=== PATIENT | male | born 1970 | race Caucasian/White ===

== ENCOUNTER → 2018-12-09 11:31 | Outpatient (CLI) | payer OTHER, SELFPAY ==
--- NOTE | 2018-12-09 | DI.RAD.S_ITS ---
PROCEDURE: XR RIBS RT MIN 3V W CXR 1V INDICATIONS: RIGHT RIB/CHEST PAIN TECHNIQUE: 2 views of the right and left ribs were acquired, along with a single view chest. COMPARISON: None. FINDINGS: Surgical changes and devices: None. Bones and chest wall: No fractures or dislocations. No suspicious bony lesions. Overlying soft tissues appear unremarkable. Lungs and pleura: No pleural effusions or pneumothorax. Lungs appear clear. Mediastinum: Mediastinal contours appear normal. Heart size is normal. IMPRESSION: No displaced rib fractures seen bilaterally. Dictated by: Kaz Winslow [facility] Interpreted: Joselito Harkins MD on 12/10/2018 at 15:10 Approved by: Joselito Harkins M.D. on 12/13/2018 at 8:37
== END ==
PROVIDERS: Visit Provider Family Medicine
DX: R07.81 Pleurodynia (principal)
CPT/HCPCS: 71101

== ENCOUNTER 2020-03-27 12:02 | Emergency (ER) | payer OTHER, SELFPAY ==
[2020-03-27] VITALS (13 sets, daily range): BP systolic 123–135; BP diastolic 66–80; PULSE 50–64; RESP 15–16; TEMP 36.2–37.1; O2SAT 91–100; BMI 32.2
--- NOTE | 2020-03-27 12:48 | DI.CT.S_ITS ---
PROCEDURE: CT HEAD/BRAIN WO CON INDICATIONS: coital headache TECHNIQUE: Noncontrast 4.5 mm thick angled axial sections acquired from the foramen magnum to the vertex, with coronal and sagittal reformats. For radiation dose reduction, the following was used: automated exposure control, adjustment of mA and/or kV according to patient size. COMPARISON: None. FINDINGS: Image quality: Excellent. CSF spaces: Basal cisterns are patent. No extra-axial fluid collections. Ventricles are normal in size and shape. Brain: No midline shift. No intracranial masses or hemorrhage. Quezada-white matter interface is normal. Skull and face: Calvarium and visualized facial bones are intact, without suspicious lesions. Sinuses: Visualized sinuses and mastoids are clear. IMPRESSION: Negative head CT. No evidence acute stroke, hemorrhage, or mass. Dictated by: Adriano Meza M.D. on 03/27/2020 at 13:06 Approved by: Adriano Meza M.D. on 03/27/2020 at 13:08
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
[2020-03-27] MEDS: SODIUM CHLORIDE 0.9% 1,000 ML 1000 ML IV (13:01)
[2020-03-27] MEDS: diphenhydrAMINE 50 MG/ML VIAL 25 MG IV (13:02)
[2020-03-27] MEDS: METOCLOPRAMIDE 10 MG/2 ML INJ IV (13:02)
[2020-03-27 13:20] LABS: Add Manual Diff / Slide Review NO; Basophils Absolute Auto 0 /uL (0-100); Basophils Percent Auto 0.6 % (0-2); Eosinophils Absolute Auto 0 /uL (0-450); Eosinophils Percent Auto 0.4 % (2-4); Hematocrit 43.5 % (41-53); Hemoglobin 14.9 g/dL (13.5-17.5); Lymphocytes Absolute Auto 1700 /uL (1100-4500); Lymphocytes Percent Auto 32.8 % (25-40); Mean Corpuscular HGB Conc 34.4 % (30-36); Mean Corpuscular Hemoglobin 30.3 PG (26-34); Mean Corpuscular Volume 88.1 fL (80-100); Monocytes Absolute Auto 300 /uL (0-900); Monocytes Percent Auto 6.2 % (3-14); Neutrophils Absolute Auto 3200 /uL (1500-7000); Platelet Count 168 X10^3/uL (150-400); Red Blood Cell Count 4.94 X10^6/uL (4.5-5.9); Red Cell Distribution Width 12.7 % (11.6-14.8); White Blood Cell Count 5.3 X10^3/uL (4.5-11.0)
[2020-03-27] MEDS: KETOROLAC 60 MG/2 ML VIAL 30 MG IV (13:37)
[2020-03-27 13:40] LABS: Alanine Aminotransferase 42 IU/L (<50); Albumin Globulin Ratio 1.7 (1.0-2.8); Alkaline Phosphatase 81 U/L (38-126); Aspartate Aminotransferase 36 IU/L (17-59); BUN Creatinine Ratio 27.5 (6-22); Bilirubin Total 0.5 mg/dL (0.2-1.3); Blood Urea Nitrogen 19 mg/dL (9-20); Calcium 9.6 mg/dL (8.4-10.2); Carbon Dioxide 30 mmol/L (22-32); Chloride 102 mmol/L (98-107); Estimated Glomerular Filt Rate > 60.0 mL/min (>60); Glucose 110 mg/dL (70-100); HEMOLYSIS < 15 (0-50); Potassium 4.3 mmol/L (3.4-5.1); Sodium 139 mmol/L (137-145)
== END 2020-03-27 16:00 | disposition home or self-care (01) ==
PROVIDERS: Emergency Provider Nurse Practitioner Family
DX: R51.9 Headache, unspecified (principal); H54.40 Blindness, one eye, unspecified eye; Z87.820 Personal history of traumatic brain injury
CPT/HCPCS: 36415; 70450; 80053; 85025; 96361; 96374; 96375; 99283; 99284; J1200; J1885; J2765

== ENCOUNTER → 2020-12-25 13:06 | Outpatient (ROUT) | payer OTHER, SELFPAY ==
[2020-12-25 14:00] LABS: COVID19 -Nasal RAPID Negative (Negative)
== END ==
PROVIDERS: Visit Provider Family Medicine
DX: Z20.822 Contact with and (suspected) exposure to COVID-19 (principal)
CPT/HCPCS: 87635

== ENCOUNTER 2021-05-30 10:30 | Emergency (ER) | payer OTHER, SELFPAY ==
[2021-05-30] VITALS (8 sets, daily range): BP systolic 124–153; BP diastolic 77–86; PULSE 52–63; RESP 14–22; TEMP 36.5–36.6; O2SAT 97–100; BMI 32.5
[2021-05-30 10:58] LABS: Add Manual Diff / Slide Review NO; Basophils Absolute Auto 0 /uL (0-100); Basophils Percent Auto 0.7 % (0-2); Eosinophils Absolute Auto 0 /uL (0-450); Eosinophils Percent Auto 0.5 % (2-4); Hematocrit 43.7 % (41-53); Lymphocytes Absolute Auto 1800 /uL (1100-4500); Lymphocytes Percent Auto 27.7 % (25-40); Mean Corpuscular HGB Conc 34.4 % (30-36); Mean Corpuscular Hemoglobin 29.9 PG (26-34); Mean Corpuscular Volume 86.9 fL (80-100); Monocytes Absolute Auto 400 /uL (0-900); Monocytes Percent Auto 6.2 % (3-14); Neutrophils Absolute Auto 4300 /uL (1500-7000); Neutrophils Percent Auto 64.9 % (50-75); Platelet Count 169 X10^3/uL (150-400); Red Blood Cell Count 5.03 X10^6/uL (4.5-5.9); Red Cell Distribution Width 13.1 % (11.6-14.8); White Blood Cell Count 6.6 X10^3/uL (4.5-11.0)
[2021-05-30 11:11] LABS: Alanine Aminotransferase 52 IU/L (<50); Albumin 4.9 g/dL (3.5-5.0); Albumin Globulin Ratio 1.5 (1.0-2.8); Alkaline Phosphatase 88 U/L (38-126); Aspartate Aminotransferase 40 IU/L (17-59); BUN Creatinine Ratio 27.3 (6-22); Bilirubin Total 0.6 mg/dL (0.2-1.3); Blood Urea Nitrogen 21 mg/dL (9-20); Calcium 9.9 mg/dL (8.4-10.2); Carbon Dioxide 25 mmol/L (22-32); Chloride 104 mmol/L (98-107); Estimated Glomerular Filt Rate > 60.0 mL/min (>60); Globulin 3.2 g/dL (1.7-4.1); Glucose 111 mg/dL (70-100); HEMOLYSIS 20 (0-50); Lipase 165 U/L (23-300); Potassium 4.4 mmol/L (3.4-5.1); Sodium 139 mmol/L (137-145); Total Protein 8.1 g/dL (6.3-8.2)
--- NOTE | 2021-05-30 12:12 | DI.US.S_ITS ---
PROCEDURE: US ABDOMEN LIMITED INDICATIONS: RIGHT UPPER QUADRANT PAIN TECHNIQUE: Real-time focused scanning was performed of the abdomen, with image documentation. COMPARISON: None. FINDINGS: The liver demonstrates mildly enlarged size. The liver demonstrates generalized moderately increased echogenicity. This decreases ultrasound sensitivity for detection of hepatic masses. The main portal vein demonstrates normal size and demonstrates normal appearing, hepatopetal flow. No findings of gallstones or sludge are seen. The gallbladder wall is not thickened, measuring 3 mm or less. No specific pericholecystic fluid is seen. The sonographic Nice sign is negative. The biliary tree is not well seen. Pancreas is overall not well seen. IMPRESSION: Normal appearing gallbladder. Biliary tree not well seen. Enlarged, fatty liver. Dictated by: Colby Chandra M.D. on 05/30/2021 at 12:40 Approved by: Colby Chandra M.D. on 05/30/2021 at 12:41
--- NOTE | 2021-05-30 12:22 | ED_ITS ---
HPI - Abdominal Pain <Arnol Jc PA-C - Last Filed: 05/30/21 19:16> General Chief Complaint: Abdominal Pain Stated Complaint: rt side pain; nausea dizzyness Time Seen by Provider: 05/30/21 12:01 Source: patient Mode of arrival: Ambulatory History of Present Illness HPI narrative: Patient is a 50-year-old male presenting to the emergency department today for evaluation of intermittent right upper quadrant abdominal pain. Patient states that he 1st noticed his pain yesterday morning, noting that it waxes and wanes 1st starting as and aching pain and occasionally transiting into a sharp and stabbing pain. He states he experienced this right upper quadrant abdominal pain again this morning and went to see the nurse practitioner at his office clinic. He states that they performed an EKG and stated that the nurse practitioner urged him to come to the emergency department due to the results of the EKG. Patient reports associated intermittent dizziness and nausea, however he denies fever, chills, chest pain, cough, shortness of breath, vomiting, diarrhea, constipation, dysuria, hematuria, or any other concerning symptoms. No further concerns reports at this time. Related Data Allergies Allergy/AdvReac Type Severity Reaction Status Date / Time No Known Drug Allergies Allergy Verified 05/30/21 10:44 Review of Systems <Arnol Jc PA-C - Last Filed: 05/30/21 19:16> Constitutional Constitutional: Denies chills, Denies fatigue, Denies fever(s), Denies frequent falls, Denies lethargy and Denies weakness Eyes Eyes: Denies loss of vision ENT Ears, Nose, Mouth, and Throat: Reports dizziness and Denies neck pain Cardiovascular Cardiovascular: Denies chest pain, Denies irregular heart rhythm, Denies lightheadedness, Denies palpitations, Denies dyspnea, Denies dyspnea on exertion and Denies orthopnea Respiratory Respiratory: Denies cough, Denies dyspnea, Denies dyspnea on exertion and Denies wheezing Gastrointestinal Gastrointestinal: Reports abdominal pain, Denies change in bowel habits, Denies diarrhea, Reports nausea and Denies vomiting Genitourinary Genitourinary: Denies hematuria, Denies flank pain, Denies urinary incontinence and Denies urinary urgency Musculoskeletal Musculoskeletal: Denies back pain, Denies muscle weakness, Denies neck pain, Denies numbness and Denies tingling Integumentary/Breasts Skin/Breast: Denies pruritus, Denies erythema, Denies rash and Denies wounds Neurologic Neurologic: Denies behavioral changes, Denies confusion, Reports dizziness, Denies frequent falls, Denies loss of vision, Denies numbness, Denies tingling and Denies weakness Psychiatric Psychiatric: Denies behavioral changes and Denies confusion Endocrine Endocrine: Denies fatigue and Denies palpitations Allergic/Immunologic Allergic/Immunologic: Denies wheezing Patient History <Arnol Jc PA-C - Last Filed: 05/30/21 19:16> Medical History History of traumatic brain injury Social History Smoking Status: Unknown if ever smoked Smoking Status: Unknown if ever smoked tobacco type: smokeless tobacco alcohol intake frequency: holidays/special occasions only Substance Use Type: marijuana Exam <Arnol Jc PA-C - Last Filed: 05/30/21 19:16> Narrative Exam Narrative: GENERAL: 50 year old patient appears stated age. Well-developed patient, in no acute distress. HEAD: Atraumatic. Normocephalic. EYES: Pupils equal round and reactive. Extraocular motions intact. No scleral icterus. No injection or drainage. ENT: Nose without bleeding, purulent drainage. Throat without erythema, tonsillar hypertrophy or exudate. Airway patent. NECK: Trachea midline. Non tender CARDIOVASCULAR: Regular rate and rhythm without murmurs, gallops, or rubs. RESPIRATORY: Clear to auscultation. Breath sounds equal bilaterally. No wheezes, rales, or rhonchi. GASTROINTESTINAL: Abdomen soft, nondistended. Mild tenderness to palpation noted in the right upper quadrant. Negative Nice sign. EXTREMITIES: No edema or joint tenderness. BACK: Nontender without deformity or crepitance. No flank tenderness. NEURO: AOx3. SKIN: No rash or erythema of visible areas Initial Vital Signs Initial Vital Signs: Vital Signs Temperature 97.7 F 05/30/21 10:44 Pulse Rate 61 05/30/21 10:44 Respiratory Rate 14 05/30/21 10:44 Blood Pressure 132/77 05/30/21 10:44 Pulse Oximetry 98 05/30/21 10:44 <Dayday Delaney DO - Last Filed: 06/04/21 18:59> Initial Vital Signs Initial Vital Signs: Vital Signs Temperature 97.7 F 05/30/21 10:44 Pulse Rate 61 05/30/21 10:44 Respiratory Rate 14 05/30/21 10:44 Blood Pressure 132/77 05/30/21 10:44 Pulse Oximetry 98 05/30/21 10:44 Course <Arnol Jc PA-C - Last Filed: 05/30/21 19:16> Course Course Narrative: CBC, CMP, lipase, troponin with repeat, urinalysis, EKG, and abdominal ultrasound performed. Patient administered 324 mg chewable aspirin and 4 mg of p.o. Zofran. Patient states he is feeling better in the emergency department. Patient states he experienced a brief episode of left-sided chest pain, noting it was sharp in nature and fleeting. He states he has not experienced similar episodes since then. Repeat troponin was obtained to rule out ACS/myocardial infarction. Orders Ordered: Discontinued Medications Aspirin (Aspirin 81 Mg Chew Tab) 324 mg PO NOW ONE Stop: 05/30/21 13:22 Last Admin: 05/30/21 13:25 Dose: 324 mg Documented by: ATARUBENOR Ondansetron HCl (Ondansetron 4 Mg Odt) 4 mg SL NOW ONE Stop: 05/30/21 12:27 Last Admin: 05/30/21 12:47 Dose: 4 mg Documented by: LENO Vital Signs Vital signs: Vital Signs - 8 hr 05/30/21 12:49 05/30/21 13:00 05/30/21 13:30 Temperature Pulse Rate 58 L 58 L 63 Respiratory Rate 17 Blood Pressure 124/85 Pulse Oximetry 97 97 100 05/30/21 13:36 05/30/21 14:00 05/30/21 14:30 Temperature Pulse Rate 53 L 52 L 52 L Respiratory Rate 15 15 22 Blood Pressure 153/86 H 134/83 Pulse Oximetry 99 98 98 05/30/21 14:44 Temperature 97.9 F Pulse Rate Respiratory Rate Blood Pressure Pulse Oximetry <Dayday Delaney DO - Last Filed: 06/04/21 18:59> Orders Ordered: Discontinued Medications Aspirin (Aspirin 81 Mg Chew Tab) 324 mg PO NOW ONE Stop: 05/30/21 13:22 Last Admin: 05/30/21 13:25 Dose: 324 mg Documented by: ATAYLOR Ondansetron HCl (Ondansetron 4 Mg Odt) 4 mg SL NOW ONE Stop: 05/30/21 12:27 Last Admin: 05/30/21 12:47 Dose: 4 mg Documented by: LENO Vital Signs Vital signs: Vital Signs - 8 hr 05/30/21 12:49 05/30/21 13:00 05/30/21 13:30 Temperature Pulse Rate 58 L 58 L 63 Respiratory Rate 17 Blood Pressure 124/85 Pulse Oximetry 97 97 100 05/30/21 13:36 05/30/21 14:00 05/30/21 14:30 Temperature Pulse Rate 53 L 52 L 52 L Respiratory Rate 15 15 22 Blood Pressure 153/86 H 134/83 Pulse Oximetry 99 98 98 05/30/21 14:44 Temperature 97.9 F Pulse Rate Respiratory Rate Blood Pressure Pulse Oximetry MDM - Abdominal Pain <Arnol Jc PA-C - Last Filed: 05/30/21 19:16> Lab Data Result diagrams: 05/30/21 10:50 05/30/21 10:50 Labs: Lab Results 05/30/21 05/30/21 05/30/21 Range/Units 10:50 10:50 11:12 WBC 6.6 (4.5-11.0) X10^3/uL RBC 5.03 (4.5-5.9) X10^6/uL Hgb 15.0 (13.5-17.5) g/dL Hct 43.7 (41-53) % MCV 86.9 (80-100) fL MCH 29.9 (26-34) PG MCHC 34.4 (30-36) % RDW 13.1 (11.6-14.8) % Plt Count 169 (150-400) X10^3/uL Neut % (Auto) 64.9 (50-75) % Lymph % (Auto) 27.7 (25-40) % Frontier % (Auto) 6.2 (3-14) % Eos % (Auto) 0.5 L (2-4) % Baso % (Auto) 0.7 (0-2) % Neut # (Auto) 4300 (5151-2026) /uL Lymph # (Auto) 1800 (1879-0798) /uL Frontier # (Auto) 400 (0-900) /uL Eos # (Auto) 0 (0-450) /uL Baso # (Auto) 0 (0-100) /uL Sodium 139 (137-145) mmol/L Potassium 4.4 (3.4-5.1) mmol/L Chloride 104 (98-107) mmol/L Carbon Dioxide 25 (22-32) mmol/L BUN 21 H (9-20) mg/dL Creatinine 0.77 (0.66-1.25) mg/dL Estimated GFR > 60.0 (>60) mL/min BUN/Creatinine Ratio 27.3 H (6-22) Glucose 111 H (70-100) mg/dL Calcium 9.9 (8.4-10.2) mg/dL Total Bilirubin 0.6 (0.2-1.3) mg/dL AST 40 (17-59) IU/L ALT 52 H (<50) IU/L Alkaline Phosphatase 88 (38-126) U/L Total Creatine Kinase 212 H (55-170) U/L CK-MB (CK-2) 2.96 H (<2.37) ng/mL CK-MB (CK-2) Rel Index 1.4 L (1.5-5.0) % Troponin I < 0.012 (0.01-0.034) ng/mL Total Protein 8.1 (6.3-8.2) g/dL Albumin 4.9 (3.5-5.0) g/dL Globulin 3.2 (1.7-4.1) g/dL Albumin/Globulin Ratio 1.5 (1.0-2.8) Lipase 165 (23-300) U/L 05/30/21 Range/Units 13:29 WBC (4.5-11.0) X10^3/uL RBC (4.5-5.9) X10^6/uL Hgb (13.5-17.5) g/dL Hct (41-53) % MCV (80-100) fL MCH (26-34) PG MCHC (30-36) % RDW (11.6-14.8) % Plt Count (150-400) X10^3/uL Neut % (Auto) (50-75) % Lymph % (Auto) (25-40) % Frontier % (Auto) (3-14) % Eos % (Auto) (2-4) % Baso % (Auto) (0-2) % Neut # (Auto) (1571-0876) /uL Lymph # (Auto) (5237-3606) /uL Frontier # (Auto) (0-900) /uL Eos # (Auto) (0-450) /uL Baso # (Auto) (0-100) /uL Sodium (137-145) mmol/L Potassium (3.4-5.1) mmol/L Chloride (98-107) mmol/L Carbon Dioxide (22-32) mmol/L BUN (9-20) mg/dL Creatinine (0.66-1.25) mg/dL Estimated GFR (>60) mL/min BUN/Creatinine Ratio (6-22) Glucose (70-100) mg/dL Calcium (8.4-10.2) mg/dL Total Bilirubin (0.2-1.3) mg/dL AST (17-59) IU/L ALT (<50) IU/L Alkaline Phosphatase (38-126) U/L Total Creatine Kinase (55-170) U/L CK-MB (CK-2) (<2.37) ng/mL CK-MB (CK-2) Rel Index (1.5-5.0) % Troponin I < 0.012 (0.01-0.034) ng/mL Total Protein (6.3-8.2) g/dL Albumin (3.5-5.0) g/dL Globulin (1.7-4.1) g/dL Albumin/Globulin Ratio (1.0-2.8) Lipase (23-300) U/L Point of care testing: Urine Dip Bedside Urine Glucose Negative Bedside Urine Bilirubin - Negative Bedside Urine Ketone - Negative Urine Specific Magnolia 1.015 Bedside Urine Occult Blood - Negative Bedside Urine pH 6.0 Bedside Urine Protein - Negative Bedside Urine Urobilinogen +/- 1mg Bedside Urine Nitrite - Negative Bedside Urine Leukocytes - Negative Esterase Imaging Data US - abdomen: Radiologist's Impression: PROCEDURE: US ABDOMEN LIMITED ? INDICATIONS:? RIGHT UPPER QUADRANT PAIN ? TECHNIQUE:? Real-time focused scanning was performed of the abdomen, with image documentation.? ? COMPARISON:? None. ? FINDINGS:? The liver demonstrates mildly enlarged size. The liver demonstrates generalized moderately increased echogenicity. This decreases ultrasound sensitivity for detection of hepatic masses.? The main portal vein demonstrates normal size and demonstrates normal appearing, hepatopetal flow.? ? No findings of gallstones or sludge are seen.? The gallbladder wall is not thickened, measuring 3 mm or less.? No specific pericholecystic fluid is seen.? The sonographic Nice sign is negative. ? The biliary tree is not well seen. ? Pancreas is overall not well seen. ? ? IMPRESSION:? Normal appearing gallbladder. ? Biliary tree not well seen. ? Enlarged, fatty liver. ? ? Dictated by: Colby Chandra M.D. on 05/30/2021 at 12:40 ? ? Approved by: Colby Chandra M.D. on 05/30/2021 at 12:41 ? MDM Narrative Medical decision making narrative: To consider cholelithiasis versus choledocholithiasis versus acute cholangitis versus cholecystitis versus gallstone pancreatitis versus hepatitis versus diverticulitis versus ACS versus acute coronary syndrome versus myocardial infarction versus chest wall tenderness versus musculoskeletal chest pain. Overall, physical examination, history, lab studies, and imaging obtained in the emergency department today returned reassuring. Discussed labs studies and imaging with patient informed him that no acute abnormality was identified today or require emergent intervention. Discussed possibility obtaining further imaging with the patient, however at this time he states he feels comfortable with current results. I urged the patient to follow-up with his primary care provider within the next 2-3 days for further evaluation. Patient expresses understanding agrees to plan. At this time patient states that he would like to be discharged home and is stable for discharge. Strict return precautions were discussed with the patient prior to discharge. <Dayday Delaney, DO - Last Filed: 06/04/21 18:59> Lab Data Labs: Lab Results 05/30/21 05/30/21 05/30/21 Range/Units 10:50 10:50 11:12 WBC 6.6 (4.5-11.0) X10^3/uL RBC 5.03 (4.5-5.9) X10^6/uL Hgb 15.0 (13.5-17.5) g/dL Hct 43.7 (41-53) % MCV 86.9 (80-100) fL MCH 29.9 (26-34) PG MCHC 34.4 (30-36) % RDW 13.1 (11.6-14.8) % Plt Count 169 (150-400) X10^3/uL Neut % (Auto) 64.9 (50-75) % Lymph % (Auto) 27.7 (25-40) % Frontier % (Auto) 6.2 (3-14) % Eos % (Auto) 0.5 L (2-4) % Baso % (Auto) 0.7 (0-2) % Neut # (Auto) 4300 (6826-1058) /uL Lymph # (Auto) 1800 (5465-7410) /uL Frontier # (Auto) 400 (0-900) /uL Eos # (Auto) 0 (0-450) /uL Baso # (Auto) 0 (0-100) /uL Sodium 139 (137-145) mmol/L Potassium 4.4 (3.4-5.1) mmol/L Chloride 104 (98-107) mmol/L Carbon Dioxide 25 (22-32) mmol/L BUN 21 H (9-20) mg/dL Creatinine 0.77 (0.66-1.25) mg/dL Estimated GFR > 60.0 (>60) mL/min BUN/Creatinine Ratio 27.3 H (6-22) Glucose 111 H (70-100) mg/dL Calcium 9.9 (8.4-10.2) mg/dL Total Bilirubin 0.6 (0.2-1.3) mg/dL AST 40 (17-59) IU/L ALT 52 H (<50) IU/L Alkaline Phosphatase 88 (38-126) U/L Total Creatine Kinase 212 H (55-170) U/L CK-MB (CK-2) 2.96 H (<2.37) ng/mL CK-MB (CK-2) Rel Index 1.4 L (1.5-5.0) % Troponin I < 0.012 (0.01-0.034) ng/mL Total Protein 8.1 (6.3-8.2) g/dL Albumin 4.9 (3.5-5.0) g/dL Globulin 3.2 (1.7-4.1) g/dL Albumin/Globulin Ratio 1.5 (1.0-2.8) Lipase 165 (23-300) U/L 05/30/21 Range/Units 13:29 WBC (4.5-11.0) X10^3/uL RBC (4.5-5.9) X10^6/uL Hgb (13.5-17.5) g/dL Hct (41-53) % MCV (80-100) fL MCH (26-34) PG MCHC (30-36) % RDW (11.6-14.8) % Plt Count (150-400) X10^3/uL Neut % (Auto) (50-75) % Lymph % (Auto) (25-40) % Frontier % (Auto) (3-14) % Eos % (Auto) (2-4) % Baso % (Auto) (0-2) % Neut # (Auto) (9804-8172) /uL Lymph # (Auto) (5560-9737) /uL Frontier # (Auto) (0-900) /uL Eos # (Auto) (0-450) /uL Baso # (Auto) (0-100) /uL Sodium (137-145) mmol/L Potassium (3.4-5.1) mmol/L Chloride (98-107) mmol/L Carbon Dioxide (22-32) mmol/L BUN (9-20) mg/dL Creatinine (0.66-1.25) mg/dL Estimated GFR (>60) mL/min BUN/Creatinine Ratio (6-22) Glucose (70-100) mg/dL Calcium (8.4-10.2) mg/dL Total Bilirubin (0.2-1.3) mg/dL AST (17-59) IU/L ALT (<50) IU/L Alkaline Phosphatase (38-126) U/L Total Creatine Kinase (55-170) U/L CK-MB (CK-2) (<2.37) ng/mL CK-MB (CK-2) Rel Index (1.5-5.0) % Troponin I < 0.012 (0.01-0.034) ng/mL Total Protein (6.3-8.2) g/dL Albumin (3.5-5.0) g/dL Globulin (1.7-4.1) g/dL Albumin/Globulin Ratio (1.0-2.8) Lipase (23-300) U/L Point of care testing: Urine Dip Bedside Urine Glucose Negative Bedside Urine Bilirubin - Negative Bedside Urine Ketone - Negative Urine Specific Magnolia 1.015 Bedside Urine Occult Blood - Negative Bedside Urine pH 6.0 Bedside Urine Protein - Negative Bedside Urine Urobilinogen +/- 1mg Bedside Urine Nitrite - Negative Bedside Urine Leukocytes - Negative Esterase Discharge Plan Departure Patient Disposition: Home Clinical Impression: Abdominal pain Instructions: DI for Abdominal Pain-Adult Activity Restrictions/Additional Instructions: *You have been diagnosed with abdominal pain *What to do: *Please continue to take your regular medications as directed. [ ] New medication prescriptions sent to your pharmacy: [ ] [ ] New medication written as a paper prescription [X] No new medications given Your physical examination, lab studies, and imaging obtained in the emergency department today returned overall very reassuring. No acute abnormality was identified today that would require emergent intervention. I recommend following up with the primary care provider within the next 2-3 days for further evaluation of your symptoms. Please do not hesitate to return to the emergency department if you experience worsening pain, intractable vomiting, fever, or any other concerning symptoms. *Please follow up with your primary care provider in 2-3 days, call for an appointment. Let them know you were seen in the Emergency Department and that we ask that you be seen in follow up. We will electronically transmit a record of today's note if your PCP is in our system *If you do not have a primary care provider please contact the [facility] Resource line at [phone]. They will ask some questions about your medical history and help get you set up with a doctor in the community. *Return to Emergency Department if you should have any new, worsening or concerning symptoms, such as fever greater than 101 F, shaking chills, worsening pain, persistent vomiting or other bothersome symptoms. <Dayday Delaney DO - Last Filed: 06/04/21 18:59> Cosign ED Attending Cosmatthewature Attestation: I was immediately available in the department for consultation. This documentation has been reviewed and I agree with assessment and plan. Supervised by Dayday Delaney DO
[2021-05-30] MEDS: ONDANSETRON 4 MG ODT SL (12:47)
[2021-05-30 12:59] LABS: Creatine Kinase 212 U/L (55-170)
[2021-05-30 13:12] LABS: Troponin I < 0.012 ng/mL (0.01-0.034)
[2021-05-30 13:17] LABS: CKMB % Relative Index 1.4 % (1.5-5.0); Creatine Kinase MB 2.96 ng/mL (<2.37)
[2021-05-30] MEDS: ASPIRIN 81 MG CHEW TAB 324 MG PO (13:25)
--- NOTE | 2021-05-30 13:28 | PC.NURSE ---
Per hotel maintenance technician, pt reported chest pain during procedure. Pt reports feeling sharp pain in left chest when he was laid flat, denies radiation, reports 0/10 pain now. [facility] aware.
[2021-05-30 14:11] LABS: Troponin I < 0.012 ng/mL (0.01-0.034)
== END 2021-05-30 14:45 | disposition home or self-care (01) ==
PROVIDERS: Emergency Medicine; Emergency Provider Physician Assistant
DX: R10.11 Right upper quadrant pain (principal)
CPT/HCPCS: 36415; 76705; 80053; 81003; 82550; 82553; 83690; 84484; 85025; 93005; 93010; 99284

== ENCOUNTER → 2022-01-11 11:08 | Outpatient (CLI) | payer OTHER, SELFPAY ==
--- NOTE | 2022-01-11 11:10 | DI.RAD.S_ITS ---
PROCEDURE: XR KNEE LT 3V INDICATIONS: bilateral knee, hip, back, ankle pain TECHNIQUE: 3 views of the knee were acquired. COMPARISON: [facility], CR, XR HIP W PEL IF DONE FEDE 3TO4V, 01/11/2022, 11:24. [facility], CR, XR LUMBAR SPINE 2-3V, 01/11/2022, 11:24. [facility], CR, XR KNEE RT 3V, 01/11/2022, 11:24. [facility], CR, XR ANKLE RT MIN 3V, 01/11/2022, 11:24. [facility], CR, XR ANKLE LT MIN 3V, 01/11/2022, 11:24. FINDINGS: Bones: No fractures or dislocations. No suspicious bony lesions. There is mild medial femorotibial joint space narrowing seen, with associated remodeling changes including subchondral sclerosis and osteophyte formation along the jointline. Soft tissues: No joint effusion. No suspicious soft tissue calcifications. 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 Dictated by: Colby Chandra M.D. on 01/11/2022 at 18:19 Approved by: Colby Chandra M.D. on 01/11/2022 at 18:19
--- NOTE | 2022-01-11 11:10 | DI.RAD.S_ITS ---
PROCEDURE: XR LUMBAR SPINE 2-3V INDICATIONS: bilateral knee, hip, back, ankle pain TECHNIQUE: 3 views of the lumbar spine were acquired. COMPARISON: [facility], CR, XR HIP W PEL IF DONE FEDE 3TO4V, 01/11/2022, 11:24. [facility], CR, XR KNEE LT 3V, 01/11/2022, 11:24. [facility], CR, XR KNEE RT 3V, 01/11/2022, 11:24. [facility], CR, XR ANKLE RT MIN 3V, 01/11/2022, 11:24. [facility], CR, XR ANKLE LT MIN 3V, 01/11/2022, 11:24. FINDINGS: Bones: 5 [id number] vertebrae are present. No vertebral body compression fractures. No suspicious bony lesions. There is minimal grade 1 L5-S1 anterolisthesis. Bilateral L5 pars defects are faintly seen. Mild disc space narrowing is seen L1-L2. Lower lumbar spine facet arthropathy is seen. Soft tissues: Overlying bowel gas pattern is normal. No suspicious soft tissue calcifications. IMPRESSION: Age-appropriate lumbar degenerative changes are seen. Bilateral L5 pars defects are seen, with minimal grade 1 anterolisthesis. If it would be helpful for clinical management decision making, please consider a dedicated, scheduled lumbar spine MRI for further evaluation (assuming that there is no contraindication). Dictated by: Colby Chandra M.D. on 01/11/2022 at 18:32 Approved by: Colby Chandra M.D. on 01/11/2022 at 18:33
--- NOTE | 2022-01-11 11:10 | DI.RAD.S_ITS ---
PROCEDURE: XR HIP W PEL IF DONE FEDE MIN 4V INDICATIONS: bilateral knee, hip, back, ankle pain TECHNIQUE: AP pelvis with lateral view(s) of both hip(s). COMPARISON: [facility], CR, XR LUMBAR SPINE 2-3V, 01/11/2022, 11:24. [facility], CR, XR KNEE LT 3V, 01/11/2022, 11:24. [facility], CR, XR KNEE RT 3V, 01/11/2022, 11:24. [facility], CR, XR ANKLE RT MIN 3V, 01/11/2022, 11:24. [facility], CR, XR ANKLE LT MIN 3V, 01/11/2022, 11:24. FINDINGS: Bones: No fractures or dislocations. Pelvic ring appears intact. No suspicious bony lesions. There is mild superior joint space narrowing seen of both hips, with associated remodeling changes with subchondral sclerosis and osteophyte formation. Soft tissues: The visualized bowel gas pattern is normal. No suspicious soft tissue calcifications. IMPRESSION: Mild bilateral hip degenerative change. Dictated by: Colby Chandra M.D. on 01/11/2022 at 18:19 Approved by: Colby Chandra M.D. on 01/11/2022 at 18:29
--- NOTE | 2022-01-11 11:10 | DI.RAD.S_ITS ---
PROCEDURE: XR ANKLE RT MIN 3V INDICATIONS: bilateral knee, hip, back, ankle pain TECHNIQUE: 3 views of the ankle were acquired. COMPARISON: [facility], CR, XR HIP W PEL IF DONE FEDE 3TO4V, 01/11/2022, 11:24. [facility], CR, XR LUMBAR SPINE 2-3V, 01/11/2022, 11:24. [facility], CR, XR KNEE LT 3V, 01/11/2022, 11:24. [facility], CR, XR KNEE RT 3V, 01/11/2022, 11:24. [facility], CR, XR ANKLE LT MIN 3V, 01/11/2022, 11:24. FINDINGS: Bones: No fractures or dislocations. Ankle mortise is normally aligned. No suspicious bony lesions. The talar dome demonstrates no howard abnormality. Age-appropriate bony degenerative changes are seen. Plantar and Achilles calcaneal spurs are seen. Soft tissues: No tibiotalar joint effusion. Achilles tendon appears normal. IMPRESSION: Age-appropriate bony degenerative changes are seen. Dictated by: Colby Chandra M.D. on 01/11/2022 at 18:30 Approved by: Colby Chandra M.D. on 01/11/2022 at 18:30
--- NOTE | 2022-01-11 11:10 | DI.RAD.S_ITS ---
PROCEDURE: XR KNEE RT 3V INDICATIONS: bilateral knee, hip, back, ankle pain TECHNIQUE: 3 views of the knee were acquired. COMPARISON: [facility], CR, XR HIP W PEL IF DONE FEDE 3TO4V, 01/11/2022, 11:24. [facility], CR, XR LUMBAR SPINE 2-3V, 01/11/2022, 11:24. [facility], CR, XR KNEE LT 3V, 01/11/2022, 11:24. [facility], CR, XR ANKLE RT MIN 3V, 01/11/2022, 11:24. [facility], CR, XR ANKLE LT MIN 3V, 01/11/2022, 11:24. FINDINGS: Bones: No fractures or dislocations. No suspicious bony lesions. The femorotibial joint spaces are relatively well preserved. On the sunrise view, there is mild lateral patellofemoral joint space narrowing seen. Osteophyte formation can be seen along the margins of the patella. On the lateral view, there is an enthesophyte seen along the superior aspect of the patella. Soft tissues: No joint effusion. No suspicious soft tissue calcifications. IMPRESSION: Focal lateral patellofemoral joint degenerative change. Dictated by: Colby Chandra M.D. on 01/11/2022 at 18:31 Approved by: Colby Chandra M.D. on 01/11/2022 at 18:32
--- NOTE | 2022-01-11 11:10 | DI.RAD.S_ITS ---
PROCEDURE: XR ANKLE LT MIN 3V INDICATIONS: bilateral knee, hip, back, ankle pain TECHNIQUE: 3 views of the ankle were acquired. COMPARISON: [facility], CR, XR HIP W PEL IF DONE FEDE 3TO4V, 01/11/2022, 11:24. [facility], CR, XR LUMBAR SPINE 2-3V, 01/11/2022, 11:24. [facility], CR, XR KNEE LT 3V, 01/11/2022, 11:24. [facility], CR, XR KNEE RT 3V, 01/11/2022, 11:24. [facility], CR, XR ANKLE RT MIN 3V, 01/11/2022, 11:24. FINDINGS: Bones: No fractures or dislocations. Ankle mortise is normally aligned. No suspicious bony lesions. The talar dome demonstrates no howard abnormality. Age-appropriate bony degenerative changes are seen. Plantar and Achilles calcaneal spurs are seen. Soft tissues: No tibiotalar joint effusion. Achilles tendon appears normal. IMPRESSION: Foot plain films within normal limits for age, with generalized degenerative change. Dictated by: Colby Chandra M.D. on 01/11/2022 at 18:30 Approved by: Colby Chandra M.D. on 01/11/2022 at 18:31
[2022-01-11 12:21] LABS: Add Manual Diff / Slide Review NO; Basophils Absolute Auto 0 /uL (0-100); Basophils Percent Auto 0.4 % (0-2); Eosinophils Absolute Auto 100 /uL (0-450); Hematocrit 44.3 % (41-53); Hemoglobin 15.7 g/dL (13.5-17.5); Lymphocytes Absolute Auto 1900 /uL (1100-4500); Lymphocytes Percent Auto 35.7 % (25-40); Mean Corpuscular HGB Conc 35.3 % (30-36); Mean Corpuscular Hemoglobin 30.6 PG (26-34); Mean Corpuscular Volume 86.6 fL (80-100); Monocytes Absolute Auto 400 /uL (0-900); Monocytes Percent Auto 8.1 % (3-14); Neutrophils Absolute Auto 2900 /uL (1500-7000); Neutrophils Percent Auto 54.8 % (50-75); Platelet Count 161 X10^3/uL (150-400); Red Blood Cell Count 5.11 X10^6/uL (4.5-5.9); Red Cell Distribution Width 12.7 % (11.6-14.8); White Blood Cell Count 5.2 X10^3/uL (4.5-11.0)
[2022-01-11 12:28] LABS: Hemoglobin A1C% w Est Avg Glu 5.5 % (4.0-6.0)
[2022-01-11 12:39] LABS: Alanine Aminotransferase 48 IU/L (<50); Albumin 4.8 g/dL (3.5-5.0); Albumin Globulin Ratio 1.7 (1.0-2.8); Alkaline Phosphatase 81 U/L (38-126); Aspartate Aminotransferase 38 IU/L (17-59); BUN Creatinine Ratio 30.9 (6-22); Blood Urea Nitrogen 25 mg/dL (9-20); C-Reactive Protein Quant 0.5 mg/dL (<1.0); Calcium 9.2 mg/dL (8.4-10.2); Carbon Dioxide 27 mmol/L (22-32); Chloride 103 mmol/L (98-107); Cholesterol 212 mg/dL (140-199); Estimated Glomerular Filt Rate > 60 mL/min (>60); Globulin 2.8 g/dL (1.7-4.1); Glucose 108 mg/dL (70-100); HDL Cholesterol 31 mg/dL (40-60); HEMOLYSIS < 15 (0-50); LDL Cholesterol Calculated 163 mg/dL (<100); Potassium 4.3 mmol/L (3.4-5.1); Sodium 141 mmol/L (137-145); Total Protein 7.6 g/dL (6.3-8.2); Triglycerides 91 mg/dL (35-150)
[2022-01-11 12:40] LABS: Rheumatoid Factor < 8.6 IU/mL (<12.0)
[2022-01-11 12:43] LABS: Erythrocyte Sedimentation Rate 5 MM/HR (0-15)
[2022-01-11 13:06] LABS: TSH w/ Reflex to FT4 0.81 uIU/mL (0.47-4.68)
[2022-01-13 12:27] LABS: Appearance Urine UA CLEAR; Bilirubin Urine UA NEGATIVE (NEGATIVE); Color Urine UA YELLOW; Glucose Urine UA NEGATIVE (Negative); Ketones Urine UA NEGATIVE (NEGATIVE); Leukocyte Esterase Urine UA TRACE (NEGATIVE); Nitrite Urine UA NEGATIVE (Negative); Occult Blood Urine UA NEGATIVE (Negative); Protein Urine UA NEGATIVE (Negative); Specific Gravity Urine UA 1.015 (1.000-1.035); Urobilinogen Urine UA 0.2 E.U./dL (0.2); pH Urine UA 5.5 (4.5-8.0)
[2022-01-13 12:48] LABS: Bacteria Urine Occasional (0-1); Culture Indicated Urine Specimen Cultured; Mucus Urine 1+ (Negative); RBC Urine None Seen (0-5/HPF); Squamous Epithelial Cell Urine 0-1 /HPF (0-5/HPF); WBC Urine 1-5/HPF (0-5/HPF)
== END ==
PROVIDERS: PCP Family Medicine; Referring Provider Family Medicine; Visit Provider Family Medicine
DX: M47.816 Spondylosis without myelopathy or radiculopathy, lumbar region (principal); M19.90 Unspecified osteoarthritis, unspecified site; R73.9 Hyperglycemia, unspecified; E66.9 Obesity, unspecified; M25.561 Pain in right knee; M25.562 Pain in left knee; M25.551 Pain in right hip; M25.552 Pain in left hip; M25.571 Pain in right ankle and joints of right foot; M25.572 Pain in left ankle and joints of left foot; M54.9 Dorsalgia, unspecified; Z82.61 Family history of arthritis
CPT/HCPCS: 36415; 72100; 73522; 73562; 73610; 80053; 80061; 81001; 83036; 84443; 85025; 85651; 86038; 86140; 86430; 87086

== ENCOUNTER → 2022-12-31 11:53 | Outpatient (CLI) | payer OTHER, SELFPAY ==
[2022-12-31 12:45] LABS: Add Manual Diff / Slide Review NO; Basophils Absolute Auto 0 /uL (0-100); Basophils Percent Auto 0.6 % (0-2); Eosinophils Absolute Auto 0 /uL (0-450); Eosinophils Percent Auto 0.6 % (2-4); Hematocrit 42.7 % (41-53); Hemoglobin 15.1 g/dL (13.5-17.5); Lymphocytes Absolute Auto 1900 /uL (1100-4500); Lymphocytes Percent Auto 32.1 % (25-40); Mean Corpuscular HGB Conc 35.3 % (30-36); Mean Corpuscular Hemoglobin 30.3 PG (26-34); Mean Corpuscular Volume 85.9 fL (80-100); Monocytes Absolute Auto 500 /uL (0-900); Monocytes Percent Auto 7.8 % (3-14); Neutrophils Absolute Auto 3500 /uL (1500-7000); Neutrophils Percent Auto 58.9 % (50-75); Platelet Count 164 X10^3/uL (150-400); Red Blood Cell Count 4.97 X10^6/uL (4.5-5.9); Red Cell Distribution Width 12.7 % (11.6-14.8)
[2022-12-31 12:57] LABS: Hemoglobin A1C% w Est Avg Glu 5.2 % (4.0-6.0)
[2022-12-31 13:07] LABS: Alanine Aminotransferase 44 IU/L (<50); Albumin 4.8 g/dL (3.5-5.0); Albumin Globulin Ratio 1.6 (1.0-2.8); Alkaline Phosphatase 75 U/L (38-126); Aspartate Aminotransferase 33 IU/L (17-59); BUN Creatinine Ratio 26.6 (6-22); Bilirubin Total 1.1 mg/dL (0.2-1.3); Blood Urea Nitrogen 21 mg/dL (9-20); Calcium 9.3 mg/dL (8.4-10.2); Carbon Dioxide 23 mmol/L (22-32); Chloride 105 mmol/L (98-107); Estimated Glomerular Filt Rate > 60 mL/min (>60); Glucose 116 mg/dL (70-100); HEMOLYSIS < 15 (0-50); Lipase 638 U/L (23-300); Potassium 4.2 mmol/L (3.4-5.1); Sodium 137 mmol/L (137-145); Total Protein 7.8 g/dL (6.3-8.2)
[2022-12-31 13:56] LABS: Prostate Specific Antigen Scrn 1.03 ng/mL (0.1-4.0)
[2023-01-01 16:39] LABS: Hep C Virus Ab w/Reflex Quant NEGATIVE s/c (NEGATIVE)
[2023-01-02 21:56] LABS: Interpretation Negative (Negative)
== END ==
PROVIDERS: PCP Family Medicine; Referring Provider Physician Assistant; Visit Provider Physician Assistant
DX: R10.9 Unspecified abdominal pain (principal); Z12.5 Encounter for screening for malignant neoplasm of prostate
CPT/HCPCS: 36415; 80053; 83013; 83036; 83690; 85025; 86803; G0103

== ENCOUNTER → 2023-01-06 08:59 | Outpatient (CLI) | payer OTHER, SELFPAY ==
--- NOTE | 2023-01-06 09:00 | DI.CT.S_ITS ---
PROCEDURE: CT ABDOMEN W CON INDICATIONS: chronic abdominal pain, Lipase 680. Does not drink alcohol. TECHNIQUE: After the administration of intravenous abnormal contrast, axial sections acquired from the diaphragm to the iliac crests. Coronal and sagittal reformats were performed. For radiation dose reduction, the following was used: automated exposure control, adjustment of mA and/or kV according to patient size. COMPARISON: [facility], , ABDOMEN LIMITED, 05/30/2021, 13:07. FINDINGS: Image quality: Excellent. Lung bases: An enlarged, mildly fatty liver is seen. No focal liver lesion is seen. Heart: No significant findings. Liver: Unremarkable. Gallbladder: Unremarkable. Biliary ducts: Unremarkable. Pancreas: In this patient with this given history, scrutiny is given to the appendix. No significant peripancreatic inflammatory changes are seen. No pancreatic ductal dilatation is seen. No howard pancreatic mass is seen. Spleen: Unremarkable. Adrenal Glands: Unremarkable. Kidneys and Ureters: Unremarkable. Stomach and Bowel: Stomach, small bowel loops, and colon are unremarkable. A normal appendix is noted. Peritoneum: No abnormal intraperitoneal fluid. No free air. Ventral Wall: No hernia. Abdominal Nodes: No retroperitoneal or mesenteric adenopathy by size criteria. Vessels: Aorta and inferior vena cava are normal in size. Bones: Age-appropriate bony degenerative changes are seen. IMPRESSION: No significant pancreas abnormality by CT. Additional findings: Enlarged, fatty liver Normal appendix Dictated by: Colby Chandra M.D. on 01/06/2023 at 9:36 Approved by: Colby Chandra M.D. on 01/06/2023 at 9:38
== END ==
LOC: CT 08:59
PROVIDERS: PCP Family Medicine; Referring Provider Physician Assistant; Visit Provider Physician Assistant
DX: R10.9 Unspecified abdominal pain (principal); K76.0 Fatty (change of) liver, not elsewhere classified; R61 Generalized hyperhidrosis; R74.8 Abnormal levels of other serum enzymes; G89.29 Other chronic pain
CPT/HCPCS: 74160; Q9967

== ENCOUNTER → 2023-01-07 09:13 | Outpatient (CLI) | payer OTHER, SELFPAY ==
[2023-01-07 10:32] LABS: Cholesterol 210 mg/dL (140-199); HDL Cholesterol 31 mg/dL (40-60); LDL Cholesterol Calculated 143 mg/dL (<100); Triglycerides 181 mg/dL (35-150)
[2023-01-07 10:34] LABS: Lipase 280 U/L (23-300)
== END ==
PROVIDERS: PCP Family Medicine; Referring Provider Physician Assistant; Visit Provider Physician Assistant
DX: R10.9 Unspecified abdominal pain (principal); G89.29 Other chronic pain; R74.8 Abnormal levels of other serum enzymes; R73.9 Hyperglycemia, unspecified; E78.5 Hyperlipidemia, unspecified
CPT/HCPCS: 36415; 80061; 83690

== ENCOUNTER → 2023-01-09 11:13 | Outpatient (CLI) | payer OTHER, SELFPAY ==
[2023-01-12 16:35] LABS: Fecal Immunochemical Test Negative (Negative)
== END ==
PROVIDERS: PCP Family Medicine; Referring Provider Family Medicine; Visit Provider Family Medicine
DX: Z12.11 Encounter for screening for malignant neoplasm of colon (principal)
CPT/HCPCS: 82274

== ENCOUNTER → 2023-01-19 14:47 | Outpatient (CLI) | payer OTHER, SELFPAY ==
--- NOTE | 2023-01-19 | DI.US.S_ITS ---
PROCEDURE: US ABDOMEN COMPLETE INDICATIONS: UNSPECIFIED ABDOMINAL PAIN TECHNIQUE: Real-time scanning was performed of the abdominal and retroperitoneal organs, with image documentation. COMPARISON: [facility], , US ABDOMEN LIMITED, 05/30/2021, 13:07. FINDINGS: Liver: Increased liver echogenicity with posterior attenuation, most consistent with moderate to severe steatosis. Gallbladder: Unremarkable. Biliary ducts: Intrahepatic bile ducts are non-dilated. Extrahepatic bile duct caliber measures 3 mm. Normal is 6-7 mm or less in diameter, or 10 mm or less post-cholecystectomy. Pancreas: Not well visualized due to overlying bowel gas. Spleen: Spleen is normal in size and homogeneous in echotexture. Kidneys: Kidneys are normal in size and echotexture. Right kidney measures 10.6 cm long; left kidney measures 12.3 cm long. No hydronephrosis or nephrolithiasis. No solid masses. Aorta: Visualized aorta is normal in caliber at less than 3 cm. Iliacs: Proximal common iliac arteries are normal in caliber at less than 2.5 cm. IVC: Intrahepatic inferior vena cava is patent. Miscellaneous: No free abdominal fluid. IMPRESSION: No acute findings to explain the patient's abdominal pain. At least moderate hepatic steatosis. Dictated by: Gume Tao M.D. on 01/19/2023 at 16:48 Approved by: Gume Tao M.D. on 01/19/2023 at 16:49
== END ==
LOC: US 14:48
PROVIDERS: PCP Family Medicine; Referring Provider Physician Assistant; Visit Provider Physician Assistant
DX: K85.90 Acute pancreatitis without necrosis or infection, unspecified (principal); R10.9 Unspecified abdominal pain; K76.0 Fatty (change of) liver, not elsewhere classified; G89.29 Other chronic pain
CPT/HCPCS: 76700

== ENCOUNTER → 2023-02-05 16:38 | Outpatient (CLI) | payer OTHER, SELFPAY ==
[2023-02-05 18:17] LABS: Lipase 137 U/L (23-300)
[2023-02-10 14:20] LABS: Deamidated Gliadin Ab IgA 5 units (0-19); Deamidated Gliadin Ab IgG 5 units (0-19); Immunoglobulin A,Qn 91 mg/dL (90-386); t-Transglutaminase IgA <2 U/mL (0-3)
== END ==
PROVIDERS: PCP Family Medicine; Referring Provider Registered Nurse Diabetes Educator; Visit Provider Registered Nurse Diabetes Educator
DX: R10.9 Unspecified abdominal pain (principal); G89.29 Other chronic pain; R11.0 Nausea
CPT/HCPCS: 36415; 82784; 83516; 83690

== ENCOUNTER → 2023-06-10 15:33 | Outpatient (CLI) | payer OTHER, SELFPAY ==
[2023-06-10 18:34] LABS: Influenza A - CEPHEID Flu A NEGATIVE (NEGATIVE); Influenza B - CEPHEID Flu B NEGATIVE (NEGATIVE); Respiratory Syncytial Virus Negative (Negative)
[2023-06-10 18:55] LABS: COVID-19 CEPHEID 4-PLEX PCR Negative (Negative)
== END ==
PROVIDERS: PCP Family Medicine; Visit Provider Physician Assistant
DX: R11.2 Nausea with vomiting, unspecified (principal)
CPT/HCPCS: 0241U

== ENCOUNTER → 2023-06-10 16:44 | Outpatient (CLI) | payer OTHER, SELFPAY ==
--- NOTE | 2023-06-10 16:46 | DI.RAD.S_ITS ---
PROCEDURE: XR CHEST 2V INDICATIONS: Right sided chest pain; SOB; N/V TECHNIQUE: 2 views of the chest were acquired. COMPARISON: None. FINDINGS: Surgical changes and devices: None. Lungs and pleura: Lungs are clear. No pleural effusions or pneumothorax. Mediastinum: Mediastinal contours are normal. Heart size is normal. Bones and chest wall: No suspicious bony abnormalities. Soft tissues appear unremarkable. Mild degenerative changes of the spine. IMPRESSION: No acute cardiopulmonary process. Dictated by: Angela Esqueda M.D. on 06/10/2023 at 19:13 Approved by: Angela Esqueda M.D. on 06/10/2023 at 19:14
[2023-06-10 17:15] LABS: Add Manual Diff / Slide Review NO; Basophils Absolute Auto 0 /uL (0-100); Basophils Percent Auto 0.6 % (0-2); Eosinophils Absolute Auto 100 /uL (0-450); Eosinophils Percent Auto 0.8 % (2-4); Hematocrit 43.9 % (41-53); Hemoglobin 15.4 g/dL (13.5-17.5); Lymphocytes Absolute Auto 2100 /uL (1100-4500); Lymphocytes Percent Auto 33.4 % (25-40); Mean Corpuscular Hemoglobin 30.1 PG (26-34); Mean Corpuscular Volume 85.9 fL (80-100); Monocytes Absolute Auto 400 /uL (0-900); Monocytes Percent Auto 6.5 % (3-14); Neutrophils Absolute Auto 3700 /uL (1500-7000); Neutrophils Percent Auto 58.7 % (50-75); Platelet Count 182 X10^3/uL (150-400); Red Blood Cell Count 5.11 X10^6/uL (4.5-5.9); Red Cell Distribution Width 12.6 % (11.6-14.8); White Blood Cell Count 6.2 X10^3/uL (4.5-11.0)
[2023-06-10 17:31] LABS: HEMOLYSIS < 15 (0-50); Iron 135 ug/dL (49-181)
[2023-06-10 17:32] LABS: Alanine Aminotransferase 33 IU/L (<50); Albumin 4.8 g/dL (3.5-5.0); Albumin Globulin Ratio 1.6 (1.0-2.8); Alkaline Phosphatase 85 U/L (38-126); Amylase 83 U/L (30-110); Aspartate Aminotransferase 28 IU/L (17-59); BUN Creatinine Ratio 26.4 (6-22); Bilirubin Total 1.1 mg/dL (0.2-1.3); Blood Urea Nitrogen 23 mg/dL (9-20); Calcium 9.6 mg/dL (8.4-10.2); Carbon Dioxide 23 mmol/L (22-32); Chloride 105 mmol/L (98-107); Estimated Glomerular Filt Rate > 60 mL/min (>60); Glucose 98 mg/dL (70-100); HEMOLYSIS < 15 (0-50); Lipase 115 U/L (23-300); Potassium 4.1 mmol/L (3.4-5.1); Sodium 140 mmol/L (137-145); Total Protein 7.8 g/dL (6.3-8.2)
[2023-06-10 17:43] LABS: Percent Iron Saturation 33 % (20-50); Total Iron Binding Capacity 403 ug/dL (261-462); Transferrin 331 mg/dL (206-381)
[2023-06-10 18:08] LABS: Ferritin 106 ng/mL (18-464)
[2023-06-10 18:22] LABS: Vitamin B12 697 pg/mL (239-931)
== END ==
LOC: LAB 16:45
PROVIDERS: PCP Family Medicine; Referring Provider Physician Assistant; Visit Provider Physician Assistant
DX: R07.9 Chest pain, unspecified (principal); R06.2 Wheezing; R11.2 Nausea with vomiting, unspecified; K76.0 Fatty (change of) liver, not elsewhere classified; R74.8 Abnormal levels of other serum enzymes; R63.4 Abnormal weight loss; R53.83 Other fatigue; R63.0 Anorexia
CPT/HCPCS: 0241U; 36415; 71046; 80053; 82150; 82607; 82728; 83540; 83550; 83690; 84443; 85025

== ENCOUNTER → 2024-07-22 09:49 | Outpatient (CLI) | payer OTHER, SELFPAY ==
--- NOTE | 2024-07-22 09:52 | DI.RAD.S_ITS ---
PROCEDURE: XR KNEE LT 3V INDICATIONS: bilateral, chronic knee pain TECHNIQUE: 3 views of the knee were acquired. COMPARISON: None. FINDINGS: Bones: No fractures or dislocations. No suspicious bony lesions. Moderate medial and mild to moderate lateral tibiofemoral and are moderate patellofemoral compartment narrowing with associated osteophytosis. Soft tissues: No joint effusion. No suspicious soft tissue calcifications. IMPRESSION: KL grade 2 tricompartmental osteoarthritis without evidence of acute osseous abnormality. Dictated by: Saran Cross M.D. on 07/22/2024 at 22:52 Approved by: Saran Cross M.D. on 07/22/2024 at 23:07
--- NOTE | 2024-07-22 09:52 | DI.RAD.S_ITS ---
PROCEDURE: XR KNEE RT 3V INDICATIONS: bilateral, chronic knee pain TECHNIQUE: 3 views of the knee were acquired. COMPARISON: None. FINDINGS: Bones: No fractures or dislocations. No suspicious bony lesions. Moderate medial and lateral tibiofemoral and moderate to severe patellofemoral compartment narrowing with associated osteophytosis. Soft tissues: No joint effusion. No suspicious soft tissue calcifications. IMPRESSION: KL grade 2 tricompartmental osteoarthritis without evidence of acute osseous abnormality. Dictated by: Saran Cross M.D. on 07/22/2024 at 22:44 Approved by: Saran Cross M.D. on 07/22/2024 at 22:52
== END ==
PROVIDERS: PCP Family Medicine; Referring Provider Family Medicine; Visit Provider Family Medicine
DX: M17.0 Bilateral primary osteoarthritis of knee (principal); M25.561 Pain in right knee; M25.562 Pain in left knee
CPT/HCPCS: 73562